=== PATIENT | female | born 1935 | race Caucasian/White ===

== ENCOUNTER 2020-11-13 14:45 | Emergency (ER) | payer OTHER, MEDICARE, SELFPAY ==
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
[2020-11-13 15:05] VITALS: BP 190/80; BP 197/69; PULSE 62; PULSE 74; RESP 16; TEMP 37.2; O2SAT 97; O2SAT 98; BMI 28.3
--- NOTE | 2020-11-13 16:57 | PC.NURSE ---
left hand skin tear cleansed with ns, bacitracin, telfa/gauze wrap
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
[2020-11-13 17:44] VITALS: PULSE 55; RESP 16; O2SAT 100
[2020-11-13] MEDS: Acetaminophen 325 MG TABLET 650 MG PO (18:10)
[2020-11-13 18:34] VITALS: BP 179/70
--- NOTE | 2020-11-13 18:36 | PC.NURSE ---
PT CALLED FAMILY [facility]BER FOR [facility].
== END 2020-11-13 18:36 | disposition home or self-care (01) ==
PROVIDERS: Emergency Provider Emergency Medicine; PCP Internal Medicine
DX: S16.1XXA Strain of muscle, fascia and tendon at neck level, initial encounter (principal); S60.512A Abrasion of left hand, initial encounter; S60.511A Abrasion of right hand, initial encounter; M54.2 Cervicalgia; M79.642 Pain in left hand; M79.641 Pain in right hand; V43.52XA Car driver injured in collision with other type car in traffic accident, initial encounter; Y93.9 Activity, unspecified; Y92.410 Unspecified street and highway as the place of occurrence of the external cause; Y99.9 Unspecified external cause status
CPT/HCPCS: 72125; 73130; 90471; 90715; 96372; 99284

== ENCOUNTER 2021-07-15 10:57 | Emergency (ER) | payer MEDICARE, OTHER, SELFPAY ==
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
[2021-07-15 11:09] VITALS: PULSE 53; RESP 18; TEMP 36.4; O2SAT 99; BMI 29.2
--- NOTE | 2021-07-15 11:28 | ED_ITS ---
HPI - Fall General Chief Complaint: Fall Stated Complaint: fall - dizziness, hit head Time Seen by Provider: 07/15/21 11:28 Source: patient Mode of arrival: ambulatory Limitations: no limitations History of Present Illness HPI Narrative: 86 years old female came in for evaluation of head injury and fall. Patient was taking a shower getting out of the bath tub, patient is tripped and fell forward hitting her head, no LOC, no nausea, no vomiting. As patient is complaining of soreness all over her body, but able to ambulate. Related Data Allergies Allergy/AdvReac Type Severity Reaction Status Date / Time No Known Allergies Allergy Unverified 05/29/20 15:06 Review of Systems Review of Systems: All other systems are reviewed and are negative Constitutional: Reports as per HPI and Reports no additional constitutional complaints Eyes: Reports as per HPI and Reports no additional eye complaints Reports system reviewed and no additional complaints, except as documented Cardiovascular: Reports as per HPI and Reports no additional cardiovascular complaints Respiratory: Reports as per HPI and Reports no additional respiratory complaints Gastrointestinal: Reports as per HPI and Reports no additional gastrointestinal complaints Genitourinary: Reports no additional female genitourinary complaints Musculoskeletal: Reports no additional musculoskeletal complaints Skin/Breast: Reports system reviewed and no additional complaints, except as docu Psychiatric: Reports no additional psychiatric complaints Endocrine: Reports no additional endocrine complaints Hematologic/Lymphatic: Reports no additional hematologic/lymphatic complaints Allergic/Immunologic: Reports no additional allergic/immunologic complaints Reports system reviewed and no additional complaints, except as documented and Reports Abnormal speech present [facility] Past Medical History Medical History Arthritis High cholesterol HTN (hypertension) Social History Social History Alcohol intake: never Advance Directives: No Advance Directives Information Provided: No Physical Exam Vital Signs: Vital Signs: Last Vital Signs Temp 97.5 F 07/15/21 11:09 Pulse 53 07/15/21 11:09 Resp 18 07/15/21 11:09 Pulse Ox 99 07/15/21 11:09 Body Mass Index 29.2 Vital signs have been reviewed as appeared to be correct. Blood pressure normal. Heart rate normal. Respiration rate normal. Temperature normal. Oxygen saturation normal. Appearance: Alert. Oriented X3. No acute distress. GCS of 15 Head: Normal external exam. Normocephalic. Atraumatic. No Frod signs noted. No raccoon eyes noted Eyes: PERRLA. EOMI. Conjunctiva and sclera normal. Eyelids normal. ENT: TM's Normal. Pharynx normal. Uvula midline. Moist mucous membranes. No trismus noted. No drooling noted. No muffled voice noted. Neck: Normal inspection. Neck supple. FROM. No adenopathy. Thyroid Normal. No meningeal signs. No neck mass noted. CVS: Normal heart rate and rhythm. Heart sound normal. No murmurs noted. Pulses normal throughout. Respiratory: No respiratory distress. Painless inspiration. Breath sounds normal. No wheezes/rales/rhonchi noted. Chest nontender. No accessory muscle usage noted or decreased air movement noted. Abdomen: Soft and nontender. Bowel sounds normal in all 4 quadrants. No distention noted. No organomegaly noted. No visible injury noted. Back: No CVA tenderness. Full range of motion noted. Skin: Skin warm and dry. Normal skin color. Normal skin turgor. No rashes/lesions/lacerations noted. Extremities: No lower extremity edema. Extremities exhibit normal range of motion. Extremities nontender. Neuro: Oriented X 3. GCS 15 Cranial nerve exam: II-XII are grossly intact No motor deficit. No sensory deficit. Reflexes normal. Course Course Course Narrative: Assessment and plan. 86-year-old female came in after sustained a mechanical fall in the bathroom, patient GCS of 15, normal neuro exam, normal head CT. Will discharge to follow- up with PCP. MDM - Fall Imaging Data CT scan - head: Radiologist's impression: No acute intracranial pathology. Discharge Plan Discharge Clinical Impression: Fall Qualifiers: Encounter type: initial encounter Qualified Code(s): W19.XXXA - Unspecified fall, initial encounter Closed head injury Qualifiers: Encounter type: initial encounter Qualified Code(s): S09.90XA - Unspecified injury of head, initial encounter Patient Disposition: Home, Self-Care Instructions: Head Injury (ED) Referrals: Niraj Ocampo MD [Primary Care Provider] - 2 days
== END 2021-07-15 13:30 | disposition home or self-care (01) ==
LOC: HO.ED 11:49
PROVIDERS: Emergency Provider Emergency Medicine; PCP Family Medicine
DX: S09.90XA Unspecified injury of head, initial encounter (principal); I10 Essential (primary) hypertension; W18.2XXA Fall in (into) shower or empty bathtub, initial encounter; Y93.9 Activity, unspecified; Y92.002 Bathroom of unspecified non-institutional (private) residence as the place of occurrence of the external cause; Y99.9 Unspecified external cause status
CPT/HCPCS: 70450; 99283; 99284